=== PATIENT | female | born 1990 | race Caucasian/White ===

== ENCOUNTER 2019-02-22 13:08 | Emergency (ER) | payer SELFPAY ==
[2019-02-22 14:09] LABS: ABS Lymphocytes 1.3 10^3/ul (1.0-4.8); ABS Monocytes 0.7 10^3/ul (0-0.8); ABS Neutrophils 5.6 10^3/ul (1.5-7.7); Eosinophil % 0.2 %; Hematocrit 39 % (35-47); Hemoglobin 13.6 g/dL (12.0-16.0); Lymphocyte % 17.5 %; Mean Corpuscular HGB Conc 35 g/dL (31-36); Mean Corpuscular Hemoglobin 32 pg (27-31); Mean Corpuscular Volume 92 fL (80-97); Mean Platelet Volume 9.6 fL (7.4-10.4); Platelet Count 300 10^3/uL (150-450); Red Blood Count 4.22 10^6 /uL (3.70-4.87); Red Cell Distribution Width 12 % (10-15); White Blood Count 7.7 10^3/uL (3.5-10.8)
[2019-02-22 14:29] LABS: Albumin 5.1 g/dL (3.2-5.2); Albumin/Globulin Ratio 1.9 (1-3); Calcium 9.8 mg/dL (8.6-10.3); EGFR African American 132.3 (>60); EGFR Non-African American 109.3 (>60); Globulin 2.7 g/dL (2-4); Total Bilirubin 0.5 mg/dL (0.2-1.0); Total Protein 7.8 g/dL (6.4-8.9)
[2019-02-22 14:40] LABS: Potassium 2.7 mmol/L (3.5-5.0)
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
[2019-02-22 15:17] LABS: Magnesium 1.4 mg/dL (1.9-2.7)
[2019-02-22] MEDS ORDERED: Potassium Chlor TAB* 20 MEQ TAB.ER PO ONE (15:29)
[2019-02-22] MEDS ORDERED: Magnesium Oxide TAB* 400 MG PO ONE (15:29)
[2019-02-22] MEDS ORDERED: Iohexol 350* (CONTRAST) 500 ML MDV IV ONE (15:50)
[2019-02-22] MEDS ORDERED: Magnesium Sulfate 2 GM IV* 2 GM/50 ML BAG IVPB ONE (18:04)
[2019-02-22] MEDS: KCL 20 MEQ/100 ML IVPREMIX* 20 MEQ/100 ML BAG IV SCH ×2 (18:31→18:56)
--- NOTE | 2019-02-22 19:52 | ED ---
Progress - Progress Note Progress Note: This pt is a sign out to Dr. Thompson from Dr. Paul at shift change 02/22/191899 pending a US and disposition. - Results/Orders Results/Orders: Her Venous Doppler study found no evidence for a DVT. ED physician has reviewed this report. Re-Evaluation - Re-Evaluation First Eval Re-Evaluation Time: 20:41 Change: Improved Comment: Pt is agreeable to the discharge plan and will be discharged home. Second Eval Re-Evaluation Time: 18:18 Comment: Patient reports that she has been having calf pain at this time. She believes that Sx could be related to the amount of hiking she recently did. Patient addtionally notes that she believes that Sx could have been due to a panic attack. She also states that she has been intermittently compliant with her medications. Course/Dx - Course Course Of Treatment: This pt is a sign out to Dr. Thompson from Dr. Paul at shift change 02/22/191899 pending a US and disposition. Her Venous Doppler Study found no evidence for a DVT. She will be discharged with the Dxs that were given to her by Dr. Paul which are as follows: hypokalemia, hypomagnesemia, medical non-compliance, and hyperventilation syndrome. I have discussed results with the patient and her symptoms are resolved. Discussed symptoms that warrant immediate return to ED. - Diagnoses Provider Diagnoses: Hyperventilation syndrome, Medical non-compliance, Hypomagnesemia, Hypokalemia , Stress Discharge ED - Sign-Out/Discharge Documenting (check all that apply): Patient Departure - discharge Patient Received Moderate/Deep Sedation with Procedure: No - Discharge Plan Condition: Stable Disposition: HOME Prescriptions: hydrOXYzine pamoate [Vistaril] 50 mg PO Q6HR PRN #30 capsule PRN Reason: Anxiety Patient Education Materials: Hyperventilation (ED), Hypokalemia (ED), Hypomagnesemia (ED) Referrals: [facility] [Outside] - 2 Days Additional Instructions: PLEASE FOLLOW UP WITH YOUR PRIMARY CARE PROVIDER IN 2-3 DAYS AND RETURN TO THE EMERGENCY DEPARTMENT FOR ANY NEW OR WORSENING SYMPTOMS. Please take the prescribed medications as directed. - Billing Disposition and Condition Condition: STABLE Disposition: Home - Attestation Statements Document Initiated by Scribe: Yes Documenting Scribe: Saravanan Lucas Provider For Whom Scribe is Documenting (Include Credential): Lisa Thompson MD Scribe Attestation: I, Saravanan Lucas, scribed for Lisa Thompson MD on 02/22/19 at 2212. Scribe Documentation Reviewed: Yes Provider Attestation: The documentation as recorded by the [email or web address] accurately reflects the service I personally performed and the decisions made by me, Lisa Thompson MD Status of Scribe Document: Viewed
[2019-02-22 20:52] VITALS: BP 120/70
[2019-02-22 22:49] LABS: TSH (Thyroid Stimulating Horm) 1.99 mcIU/mL (0.34-5.60)
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
== END 2019-02-22 20:51 | disposition home or self-care (01) ==
LOC: ED 13:08
DX: F45.8 Other somatoform disorders (principal); Z91.19 Patient's noncompliance with other medical treatment and regimen; E83.42 Hypomagnesemia; E87.6 Hypokalemia; F43.9 Reaction to severe stress, unspecified; R06.02 Shortness of breath; R53.83 Other fatigue; N15.8 Other specified renal tubulo-interstitial diseases; Z88.1 Allergy status to other antibiotic agents; Z88.0 Allergy status to penicillin; Z87.891 Personal history of nicotine dependence
CPT/HCPCS: 36415; 70496; 70498; 80053; 82607; 83605; 83735; 84443; 84484; 85025; 85379; 93005; 93970; 96365; 96366; 99282; A9270-GY; J3475; J3480; Q9967

== ENCOUNTER 2019-07-15 10:26 | Emergency (ER) | payer SELFPAY ==
--- NOTE | 2019-07-15 11:20 | ED ---
Throat Pain/Nasal Congestion - HPI Summary HPI Summary: Patient is a 29 y/o F presenting to the ED for a chief complaint of sore throat for the last 2 weeks. Previously, patient was seen at [facility], told she had a fever, and given Tylenol, steroids, and antibiotics with relief of her sore throat. Two days after completing the antibiotic, her sore throat returned. Patient was prescribed a second course of antibiotics, for which she is on day 2 or 3. She also notes a cough, ear ache, and decreased oral intake. PMHx is significant for Gitelman syndrome and recurrent tonsillitis in childhood. Allergies to penicillin and Augmentin noted. - History of Current Complaint Chief Complaint: EDThroatPain Time Seen by Provider: 07/15/19 11:17 Hx Obtained From: Patient Onset/Duration: Sudden Onset, Lasting Weeks - 2 weeks, Still Present Severity: Moderate Cough: Other: - Cough - Allergies/Home Medications Allergies/Adverse Reactions: Allergies Allergy/AdvReac Type Severity Reaction Status Date / Time amoxicillin [From Augmentin] Allergy Hives Verified 07/15/19 10:30 clavulanic acid Allergy Hives Verified 07/15/19 10:30 [From Augmentin] Penicillins Allergy Hives Verified 07/15/19 10:30 PMH/Surg Hx/FS Hx/Imm Hx Previously Healthy: Yes Endocrine/Hematology History: Denies: Hx Diabetes Cardiovascular History: Denies: Hx Hypertension History: Reports: Other Problems/Disorders - gitelman syndrome Denies: Hx Renal Disease Sensory History: Denies: Hx Legally Blind, Hx Deafness Opthamlomology History: Denies: Hx Legally Blind EENT History: Denies: Hx Deafness Psychiatric History: Reports: Hx Anxiety Denies: Hx Panic Disorder - Surgical History Surgical History: None Surgery Procedure, Year, and Place: none Infectious Disease History: No Infectious Disease History: Denies: Traveled Outside the [place] in Last 30 Days - Family History Known Family History: Positive: Other - no FMHx of stroke Negative: Blood Disorder - Social History Occupation: Employed Full-time Alcohol Use: Rare Hx Substance Use: Yes Substance Use Type: Reports: Marijuana Hx Tobacco Use: Yes Smoking Status (MU): Former Smoker Review of Systems Positive: Fever - In vitals, 98.1 F, Other - Positive decreased oral intake Positive: Sore Throat, Ear Ache Positive: Cough All Other Systems Reviewed And Are Negative: Yes Physical Exam - Summary Physical Exam Summary: Constitutional: Well-developed, Well-nourished, Alert. (-) Distressed Skin: Warm, Dry HENT: Normocephalic; Atraumatic. Swelling in the region of the right posterior oropharynx consistent with peritonsillar abscess, bilateral exudates. Eyes: Conjunctiva normal Neck: Musculoskeletal ROM normal neck. (-) JVD, (-) Stridor, (-) Tracheal deviation Cardio: Rhythm regular, rate normal, Heart sounds normal; Intact distal pulses; The pedal pulses are 2+ and symmetric. Radial pulses are 2+ and symmetric. (-) Murmur Pulmonary/Chest wall: Effort normal. (-) Respiratory distress, (-) Wheezes, (-) Rales Abd: Soft, (-) tenderness, (-) Distension, (-) Guarding, (-) Rebound Musculoskeletal: (-) Edema Lymph: (-) Cervical adenopathy Neuro: Alert, Oriented x3 Psych: Mood and affect Normal Triage Information Reviewed: Yes Vital Signs On Initial Exam: Initial Vitals Temp Pulse Resp BP Pulse Ox 98.1 F 88 20 123/70 98 07/15/19 10:28 07/15/19 10:28 07/15/19 10:28 07/15/19 10:28 07/15/19 10:28 Vital Signs Reviewed: Yes ENT: Positive: Uvula midline, Other - Significantly enlarged right tonsil with bilateral exudates. Uvula midline. Peritonsillar fossa appears normal, no fullness/swelling. Procedures - Sedation Patient Received Moderate/Deep Sedation with Procedure: No Diagnostics - Vital Signs Vital Signs Temp Pulse Resp BP Pulse Ox 07/15/19 10:28 98.1 F 88 20 123/70 98 - Laboratory Lab Statement: Any lab studies that have been ordered have been reviewed, and results considered in the medical decision making process. EENT Course/Dx - Course Course Of Treatment: Patient is a 29 y/o F presenting to the ED for a chief complaint of sore throat for the last 2 weeks. Previously, patient was seen at [facility], told she had a fever, and given Tylenol, steroids, and antibiotics with relief of her sore throat. Two days after completing the antibiotic, her sore throat returned. Patient was prescribed a second course of antibiotics, for which she is on day 2 or 3. She also notes a cough, ear ache, and decreased oral intake. PMHx is significant for Gitelman syndrome and recurrent tonsillitis in childhood. Allergies to penicillin and Augmentin noted. In the ED course, patient was given Clindamycin 600 mg PO, Cetacaine spray 1 spray TOPICAL. Bedside ultrasound performed with intracavitary probe, no peritonsillar abscess cavity appreciated. Patient will be discharged with a diagnosis of tonsillitis and prescription for clindamycin and prednisone. Follow up with ENT. - Diagnoses Provider Diagnoses: Tonsillitis Discharge ED - Sign-Out/Discharge Documenting (check all that apply): Patient Departure - Discharge - Discharge Plan Condition: Stable Disposition: HOME Prescriptions: Clindamycin Cap(NF) [Clindamycin Cap 300 mg Cap(NF)] 300 mg PO TID 7 Days #21 cap predniSONE [Prednisone 20 MG TAB] 40 mg PO DAILY 4 Days #8 tablet Patient Education Materials: Tonsillitis (ED) Referrals: [facility] [Outside] Edgar Mcmahan MD [Medical Doctor] - Additional Instructions: RETURN TO THE EMERGENCY DEPARTMENT FOR CHANGING OR WORSENING SYMPTOMS. Follow up with ENT and your primary care physician in 1-3 days. - Billing Disposition and Condition Condition: STABLE Disposition: Home - Attestation Statements Document Initiated by Noam: Yes Documenting Scribe: Agustina Woodard Provider For Whom Noam is Documenting (Include Credential): Clark Rhodes DO Scribe Attestation: Agustina Carr scribed for Clark Rhodes DO on 07/15/19 at 1501. Scribe Documentation Reviewed: Yes Provider Attestation: The documentation as recorded by the Agustina galvez accurately reflects the service I personally performed and the decisions made by , Clark Rhodes DO Status of Scrmarisela Document: Viewed
[2019-07-15] MEDS ORDERED: Benzocaine/Butamben/Tetracain (CETACAINE - SINGLE USE) 5 gm TOPICAL ONE (11:43)
[2019-07-15] MEDS ORDERED: Lidocaine 1% MPF ** 5 ML VIAL INJ ONE (11:43)
[2019-07-15] MEDS ORDERED: Clindamycin CAP* 150 MG PO ONE (12:25)
[2019-07-15 12:43] VITALS: BP 105/72
== END 2019-07-15 12:42 | disposition home or self-care (01) ==
LOC: ED 10:26
DX: J03.90 Acute tonsillitis, unspecified (principal); N15.8 Other specified renal tubulo-interstitial diseases; Z87.891 Personal history of nicotine dependence; Z88.0 Allergy status to penicillin; Z88.1 Allergy status to other antibiotic agents
CPT/HCPCS: 99282; A9270-GY

== ENCOUNTER 2019-07-18 11:00 | Inpatient (IN) | payer SELFPAY ==
[2019-07-18] MEDS ORDERED: Benzocaine/Butamben/Tetracain (CETACAINE - SINGLE USE) 5 gm TOPICAL ONE (11:13)
[2019-07-18] MEDS ORDERED: Ketorolac INJ* 30 MG/ML 1 ML VIAL IV ONE (11:14)
--- NOTE | 2019-07-18 11:20 | ED ---
Throat Pain/Nasal Congestion - HPI Summary HPI Summary: The patient is a 29 y/o female presenting to [facility] accompanied by mother with a chief complaint of severe throat pain initially onset three weeks ago with worsening since. She reports that she began to experience a sore throat a few weeks ago that was worse on the right. She was diagnosed with strep throat. Since then, she has had three courses of antibiotics and two steroids without relief of the swelling. She notes that there hasnt been any pus or abscess in the throat. She went to ENT today, where she saw Dr. Mcmahan who advised her to come to the ED for possible admission. She endorses decreased oral intake secondary to pain and dysphagia. She notes a history of tonsillitis when she was younger which was supposed to require a tonsillectomy but did not have the procedure done. She has had tonsillar issues since then but not to this degree. She is unsure if she had mono before, but she was not tested recently. Symptoms are currently rated 10/10 in severity. She has also been taking Naproxen and Hydrocodone to no relief of the pain. PMHx: Gitelman syndrome. Former smoker, rare EtOH, marijuana use. Medications reviewed. Allergies noted. - History of Current Complaint Chief Complaint: EDThroatPain Time Seen by Provider: 07/18/19 11:07 Hx Obtained From: Patient Onset/Duration: Lasting Weeks, Still Present Severity: Severe Associated Signs And Symptoms: Positive: Dysphagia Cough: None Related History: Other (Noted In Comments) - tonsil problems in past, no tonsillectomy although was supposed to have it - Allergies/Home Medications Allergies/Adverse Reactions: Allergies Allergy/AdvReac Type Severity Reaction Status Date / Time amoxicillin [From Augmentin] Allergy Hives Verified 07/18/19 11:06 clavulanic acid Allergy Hives Verified 07/18/19 11:06 [From Augmentin] Penicillins Allergy Hives Verified 07/18/19 11:06 PMH/Surg Hx/FS Hx/Imm Hx Endocrine/Hematology History: Denies: Hx Diabetes Cardiovascular History: Denies: Hx Hypertension GI History: Reports: Other GI Disorders - tonsillar issues History: Reports: Other Problems/Disorders - gitelman syndrome Denies: Hx Renal Disease Sensory History: Denies: Hx Legally Blind, Hx Deafness Opthamlomology History: Denies: Hx Legally Blind Psychiatric History: Reports: Hx Anxiety Denies: Hx Panic Disorder - Surgical History Surgical History: None Surgery Procedure, Year, and Place: none Infectious Disease History: No Infectious Disease History: Denies: Traveled Outside the [place] in Last 30 Days - Family History Known Family History: Positive: Other - no FMHx of stroke Negative: Blood Disorder - Social History Alcohol Use: Rare Hx Substance Use: Yes Substance Use Type: Reports: Marijuana Hx Tobacco Use: Yes Smoking Status (MU): Former Smoker Review of Systems Positive: Sore Throat, Other - dysphagia Positive: Other - decreased oral intake secondary to throat pain All Other Systems Reviewed And Are Negative: Yes Physical Exam - Summary Physical Exam Summary: Constitutional: Well-developed, Well-nourished, Alert. (-) Distressed Skin: Warm, Dry HENT: Bilateral tonsillar erythema +swelling with exudates; Normocephalic; Atraumatic Eyes: Conjunctiva normal Neck: Musculoskeletal ROM normal neck. (-) JVD, (-) Stridor, (-) Nuchal rigidity Cardio: Rhythm regular, rate tachycardic, Heart sounds normal; Intact distal pulses; Radial pulses are 2+ and symmetric. (-) Murmur Pulmonary/Chest wall: Effort normal. (-) Respiratory distress, (-) Wheezes, (-) Rales Abd: Soft, (-) tenderness, (-) Distension, (-) Guarding, (-) Rebound Musculoskeletal: (-) Edema Lymph: (+) Cervical adenopathy Neuro: Alert, Oriented x3 Psych: Mood and affect Normal Triage Information Reviewed: Yes Vital Signs On Initial Exam: Initial Vitals Temp Pulse Resp BP Pulse Ox 98.5 F 112 18 141/100 98 07/18/19 11:03 07/18/19 11:03 07/18/19 11:03 07/18/19 11:03 07/18/19 11:03 Vital Signs Reviewed: Yes Procedures - Sedation Patient Received Moderate/Deep Sedation with Procedure: No Diagnostics - Vital Signs Vital Signs Temp Pulse Resp BP Pulse Ox 07/18/19 11:03 98.5 F 112 18 141/100 98 - Laboratory Result Diagrams: 07/18/19 11:15 07/18/19 11:15 Lab Statement: Any lab studies that have been ordered have been reviewed, and results considered in the medical decision making process. Re-Evaluation - Re-Evaluation First Eval Re-Evaluation Time: 12:49 Comment: Discussed plan for admission, patient and mother agreeable. EENT Course/Dx - Course Course Of Treatment: 29 y/o F w recurrent strep throat p/w tonsillar swelling and inability to tolerate PO. - VS tachy, exam w recurrent tonsillar erythema, swelling and exudates. Sent for culture, test for mono, check CBC and CMP given history of hypokalemia. Labs w potassium 2.5, given 40 IV. Plan for IV hydration, admit to the hospitalist. They can discuss with ENT regarding further course of antibiotics versus surgical txt. - Diagnoses Provider Diagnoses: Tonsillitis, Hypokalemia - Provider Notifications Discussed Care Of Patient With: Serge Bah - hospitalist Time Discussed With Above Provider: 12:45 Instructed by Provider To: Other - Dr. Bah accepts the patient for admission. Discharge ED - Sign-Out/Discharge Documenting (check all that apply): Patient Departure - Patient accepted for admission by Dr. Bah. - Discharge Plan Condition: Stable Disposition: ADMITTED TO [facility] Referrals: [facility] [Outside] - Billing Disposition and Condition Condition: STABLE Disposition: Admitted to [facility] - Attestation Statements Document Initiated by Noam: Yes Documenting Scribe: Debbie Kovacs Provider For Whom Noam is Documenting (Include Credential): Dr. Rico Yarbrough MD Scribe Attestation: Debbie Carr scribed for Dr. Rico Yarbrough MD on 07/18/19 at 1258. Scribe Documentation Reviewed: Yes Provider Attestation: The documentation as recorded by the Debbie galvez accurately reflects the service I personally performed and the decisions made by me, Dr. Rico Yarbrough MD Status of Scribe Document: Viewed
[2019-07-18 11:29] LABS: ABS Lymphocytes 0.6 10^3/ul (1.0-4.8); ABS Neutrophils 9.5 10^3/ul (1.5-7.7); Eosinophil % 0.1 %; Hematocrit 39 % (35-47); Hemoglobin 14.1 g/dL (12.0-16.0); Lymphocyte % 5.1 %; Mean Corpuscular HGB Conc 37 g/dL (31-36); Mean Corpuscular Hemoglobin 33 pg (27-31); Mean Corpuscular Volume 90 fL (80-97); Mean Platelet Volume 8.9 fL (7.4-10.4); Platelet Count 264 10^3/uL (150-450); Red Blood Count 4.26 10^6 /uL (3.70-4.87); Red Cell Distribution Width 12 % (10-15); White Blood Count 11.1 10^3/uL (3.5-10.8)
[2019-07-18 11:54] LABS: Albumin 4.4 g/dL (3.2-5.2); Albumin/Globulin Ratio 1.2 (1-3); BUN/Creatinine Ratio 14.3 (8-20); Calcium 9.6 mg/dL (8.6-10.3); EGFR Non-African American 128.9 (>60); Globulin 3.8 g/dL (2-4); Total Bilirubin 0.5 mg/dL (0.2-1.0); Total Protein 8.2 g/dL (6.4-8.9)
[2019-07-18 11:57] LABS: Potassium 2.5 mmol/L (3.5-5.0)
[2019-07-18] MEDS: KCL 20 MEQ/100 ML IVPREMIX* 20 MEQ/100 ML BAG IV SCH ×2 (12:59→15:58)
[2019-07-18] MEDS ORDERED: Acetaminophen TAB* 325 MG PO PRN (13:35)
[2019-07-18] MEDS ORDERED: Ketorolac INJ* 15 MG/ML 1 ML VIAL IV PUSH PRN (13:39)
[2019-07-18 13:52] LABS: Magnesium 1.6 mg/dL (1.9-2.7)
[2019-07-18] MEDS ORDERED: Magnesium Sulfate 2 GM IV* 2 GM/50 ML BAG IVPB ONE (14:17)
[2019-07-18] MEDS ORDERED: Potassium Chlor TAB* 10 MEQ TAB.ER PO ONE (14:39)
--- NOTE | 2019-07-18 15:51 | HP ---
HISTORY AND PHYSICAL: DATE OF ADMISSION: 07/18/19 PROVIDER: Dahiana Wilkes NP PRIMARY CARE PROVIDER: None. ATTENDING PHYSICIAN WHILE IN THE HOSPITAL: Dr. Serge Bah * (dictated by Dahiana Wilkes NP). CHIEF COMPLAINT: Sore throat. HISTORY OF PRESENT ILLNESS: Ms. Prado is a 29-year-old female with a history of Gitelman syndrome, who presented to the emergency room with the complaints of worsening sore throat. The patient reports that on 06/29/19, she was experiencing sore throat. She had a culture done that was positive for strep. At that time, she was started on what she believes is cefdinir, for which she finished a 7-day course. The patient reports that approximately 24 to 48 hours after completing her first round of antibiotics, she again developed a sore throat, which has become progressively worse since. The patient reports that she was seen again and started on azithromycin on 07/10/19, but has had no improvement with the antibiotics and is only becoming worse to the point she is unable to swallow due to significant amount of pain. The patient reports that she was again seen on Tuesday, at that time her antibiotic was changed from azithromycin to clindamycin and the patient has been on clindamycin. She followed up with ENT today, who sent her to the emergency room for admission. The patient also reports that she has been steroids for 2 weeks with no relief. At this point, the patient reports she is unable to tolerate food or fluids and reports that she has been having fevers and chills on and off since . She does report occasional cough. She denies any chest pain, hemoptysis, shortness of breath. No nausea, vomiting, diarrhea or abdominal pain. Denies any gross hematuria or dysuria. Denies any focal weakness or sensory loss. Denies any visual complaints, dysphagia, arthralgias, myalgias, rashes, lesions , open sores, psychosis or anxiety. While in the emergency room, the patient had routine lab work drawn. She was found to have a mildly elevated white count of 11.1, a potassium of 2.5, and magnesium of 1.6. Due to the findings of worsening tonsillitis and hypokalemia , Hospital Medicine was asked to see and evaluate her for admission. PAST MEDICAL HISTORY: Significant for Gitelman syndrome. PAST SURGICAL HISTORY: None. MEDICATIONS: Home medications include: 1. Potassium chloride 40 mEq t.i.d. 2. Magnesium 2 tablets daily. 3. Naproxen as needed. ALLERGIES: Allergy to PENICILLIN and AUGMENTIN. FAMILY HISTORY: Mother with hypertension. Grandparents with stroke and [place]. No reported history of diabetes. Mother with cervical and thyroid cancer. SOCIAL HISTORY: Denies any tobacco, alcohol or illicit drug use. Surrogate decision maker in the event she is unable to make her own decisions is her mother. She is a full code. REVIEW OF SYSTEMS: A 14-point review of systems was completed. All pertinent positives are mentioned in the HPI. PHYSICAL EXAMINATION GENERAL: At this time, Ms. Prado is alert and oriented, resting on the stretcher in the emergency room. She is in no apparent respiratory distress at this time. VITAL SIGNS: Blood pressure 136/90, heart rate of 100, respirations 16, O2 saturation 99%, temperature was 98.5. HEENT: Head is atraumatic, normocephalic. Eyes: EOMs are intact. Sclerae anicteric and not pale. Oral mucosa is moist. She does have tonsillar swelling with white exudate and erythema. NECK: She does have tonsillar lymphadenopathy,which is very tender to the touch. No mandibular or cervical chain lymphadenopathy was noted. LUNGS: Clear to auscultation bilaterally. No wheezes, rales, or rhonchi. CARDIAC: S1, S2. Regular rate and rhythm. No murmurs, rubs or gallops. ABDOMEN: Soft and nontender. Bowel sounds are present x4. EXTREMITIES: She is able to to move all 4 extremities. There is no clubbing or cyanosis. NEUROLOGIC: She is awake, alert and oriented x3. Speech is clear. Thought process is intact. SKIN: Intact. DIAGNOSTIC STUDIES/LAB DATA: WBCs are 11.1, RBCs 4.26, hemoglobin 14.1, hematocrit 39, platelet count 264. Sodium 135, potassium 2.5, chloride 91, carbon dioxide 33, anion gap is 11, BUN 8, creatinine 0.56, magnesium 1.6. [place] was negative. ASSESSMENT AND PLAN: Ms. Prado is a 29-year-old female with a past medical history significant for Gitelman syndrome, who presented to the emergency room with progressively worsening tonsillitis. She will be admitted under observation for: 1. Sore throat. I suspect her sore throat is related to tonsillitis. The patient did have a recent positive strep, for which was then treated cefdinir x7 days and then azithromycin and was recently switched to clindamycin. She was also seen by Dr. Mcmahan in the office today and was sent to the emergency room for IV antibiotics and admission. I did speak to Dr. Mcmahan on the phone and he recommended consultation to ID for antibiotic choice for her tonsillitis. I did speak to ID, who recommended ceftriaxone. The patient will be placed on ceftriaxone 1 g q.24 hours and she can have Toradol 15 mg every 6 hours as needed for mild pain max 20 doses. I will add Percocet and consider morphine as needed for severe pain. At this point, the patient is able to tolerate secretions and she has had 2 weeks of prednisone, with no improvement. At this time, I will hold off on giving her Decadron, Should the swelling become or she is unable to tolerate her secretions I would recommend a trail of corticosteroids. I will get herpes , GC throat culture as well. 2. Gitelman syndrome. From the syndrome, the patient does experience chronic hypokalemia and hypomagnesia. I will replete her potassium and magnesium and repeat a BMP and mag in the a.m. 3. FEN. She can have a regular diet. 4. Code status. She is a full code. 5. DVT prophylaxis. Encourage ambulation. TIME SPENT: Time spent on this admission was 60 minutes. Greater than half that time was spent at the bedside reviewing events leading thus far to her hospitalization, performing physical exam and reviewing my plan of care. I have discussed with my attending. Dr. Serge Bah, he is in agreement with my plan. DAHIANA WILKES, MEDICATION SPECIALIST [id number]/[facility] #: [id number] [place]
[2019-07-18] MEDS: oxyCODONE/Acetamin 5/325 MG* TAB PO PRN ×2 (16:02→21:54)
[2019-07-18] MEDS: cefTRIAXone(*) 1 GM in NS 0.9% 50 ML* 50 ML IVPB SCH (17:35)
[2019-07-18] MEDS ORDERED: Potassium Chlor TAB* 20 MEQ TAB.ER PO ONE (18:30)
[2019-07-18] MEDS: Ketorolac INJ* 15 MG/ML 1 ML VIAL IV PUSH PRN (18:36)
[2019-07-18] MEDS: D5W 1/2 NS 40 Meq KCL 1000 ML* 1,000 ML IV SCH (18:40)
[2019-07-18] MEDS: Phenol 1.4% Spray* 177 ML BTL MT PRN (21:31)
[2019-07-19] MEDS: Ketorolac INJ* 15 MG/ML 1 ML VIAL IV PUSH PRN ×4 (00:18→20:40)
[2019-07-19] MEDS: D5W 1/2 NS 40 Meq KCL 1000 ML* 1,000 ML IV SCH (04:55)
[2019-07-19] MEDS: Morphine INJ* 2 MG/ML 1 ML SYRINGE (TWO MG - NEW SYRINGE VERSION) IV PRN ×5 (05:12→23:46)
[2019-07-19] MEDS ORDERED: D5LR 1000 ML BAG* 1,000 ML IV SCH (10:00)
--- NOTE | 2019-07-19 12:50 | PN ---
Subjective Date of Service: 07/19/19 Interval History: Ms. Prado continues to have sore throat, subjective fever, chills/sweats. She states that she has decreased PO intake due to throat pain and has no relief with hot or cold liquids. She states that it feels as if she is swallowing glass or throat is on fire with swallowing. She has had a nonproductive cough for "a couple of days" without dyspnea or wheeze. She has had difficulty with sleeping and nausea. She c/o constipation. No other complaints today. Objective Active Medications: Acetaminophen (Tylenol Tab*) 650 mg PO Q4H PRN PRN Reason: MILD PAIN or TEMP > 100.4 Ceftriaxone Sodium 1 gm/ (Sodium Chloride) 50 mls @ 100 mls/hr IVPB Q24H [facility] Last Admin: 07/18/19 17:35 Dose: 100 mls/hr Dextrose/Lactated Ringer's (D5lr 1000 Ml Bag*) 1,000 mls @ 100 mls/hr IV PER RATE [facility] Stop: 07/19/19 19:59 Last Admin: 07/19/19 11:03 Dose: 100 mls/hr Ketorolac Tromethamine (Toradol Inj*) 15 mg IV PUSH Q6H PRN PRN Reason: PAIN - MILD Stop: 07/23/19 13:38 Last Admin: 07/19/19 07:59 Dose: 15 mg Morphine Sulfate (Morphine Inj (Syringe))*) 2 mg IV Q4H PRN PRN Reason: PAIN - MODERATE Last Admin: 07/19/19 10:57 Dose: 2 mg Oxycodone/Acetaminophen (Percocet 5/325 Tab*) 1 tab PO Q6H PRN PRN Reason: PAIN - MODERATE Last Admin: 07/18/19 21:54 Dose: 1 tab Phenol/Menthol (Chloroseptic Throat [place]*) 1 spray MT TID PRN PRN Reason: SORE THROAT Last Admin: 07/18/19 21:31 Dose: 1 spray Vital Signs: Temp Pulse Resp BP Pulse Ox 97.4 F 83 17 112/78 100 07/19/19 02:40 07/19/19 02:40 07/19/19 10:57 07/19/19 02:40 07/19/19 02:40 Oxygen Devices in Use Now: None Appearance: Ms. Prado is a middle-age white female who is sitting up in bed. She appears mildly uncomfortable, without respiratory distress. Eyes: No Scleral Icterus, PERRLA Ears/Nose/Mouth/Throat: NL Teeth, Lips, Gums, Mucous Membranes Moist, - - b/l tonsils with erythema, extensive white exudate, and edema, R>L; voice appears normal Neck: NL Appearance and Movements; NL JVP, Trachea Midline, - - no apparent cervical LAD Respiratory: Symmetrical Chest Expansion and Respiratory Effort, Clear to Auscultation Cardiovascular: NL Sounds; No Murmurs; No JVD, RRR, No Edema Abdominal: NL Sounds; No Tenderness; No Distention, No Hepatosplenomegaly Extremities: No Edema, No Clubbing, Cyanosis Neurological: Alert and Oriented x 3 Result Diagrams: 07/19/19 13:25 07/19/19 13:25 Assess/Plan/Problems-Billing Assessment: 29yof PMHx Gitelman's syndrome presents with throat pain and tonsilitis x20 days that has been resistant to treatment with cefdinir. - Patient Problems (1) Acute bacterial tonsillitis Comment: -patient with sore throat since 06/29; failed 7 d cefdinir; also on 3d azithro, 4d clinda -now with exudative sore throat with associated erethema, edema -mono negative; did have positive strep test in outpatient setting -pending EBV, HSV, gonnorrhea, throat cultures -Dr. Mcmahan recommended admission, ID consultation -ID consulted; recommends ceftriaxone and will see patient (2) Gitelman syndrome Comment: -K, Mg repleted yesterday -patient is difficult stick; awaiting labs for today to determine need for further electrolyte repletion -placed on PO K 120 mEq daily, as at home; offered liquid, and patient prefers tablets -continue to monitor lytes daily (3) DVT prophylaxis Comment: -encourage ambulation (4) Full code status Status and Disposition: Observation. Discharge when stable.
[2019-07-19 13:37] LABS: ABS Lymphocytes 1.9 10^3/ul (1.0-4.8); ABS Monocytes 0.9 10^3/ul (0-0.8); ABS Neutrophils 6.7 10^3/ul (1.5-7.7); Eosinophil % 0.1 %; Hematocrit 37 % (35-47); Hemoglobin 13.3 g/dL (12.0-16.0); Mean Corpuscular HGB Conc 36 g/dL (31-36); Mean Corpuscular Hemoglobin 33 pg (27-31); Mean Corpuscular Volume 91 fL (80-97); Mean Platelet Volume 8.4 fL (7.4-10.4); Platelet Count 276 10^3/uL (150-450); Red Cell Distribution Width 12 % (10-15); White Blood Count 9.6 10^3/uL (3.5-10.8)
[2019-07-19 13:59] LABS: BUN/Creatinine Ratio 8.2 (8-20); C Reactive Protein 81.65 mg/L (<8.01); EGFR African American 141.3 (>60); EGFR Non-African American 116.8 (>60); Magnesium 2.1 mg/dL (1.9-2.7)
[2019-07-19 14:22] LABS: Potassium 2.5 mmol/L (3.5-5.0)
[2019-07-19] MEDS ORDERED: Potassium Chloride* LIQUID 20 MEQ/15 ML UDC PO SCH (14:35)
[2019-07-19] MEDS ORDERED: KCL 20 MEQ/100 ML IVPREMIX* 20 MEQ/100 ML BAG IV SCH (15:00)
[2019-07-19] MEDS: POTASSIUM CHLOR 20 MEQ PO SCH ×2 (15:33→19:25)
[2019-07-19] MEDS: cefTRIAXone(*) 1 GM in NS 0.9% 50 ML* 50 ML IVPB SCH (17:31)
[2019-07-20] MEDS: Ketorolac INJ* 15 MG/ML 1 ML VIAL IV PUSH PRN ×2 (02:52→09:31)
[2019-07-20] MEDS: Morphine INJ* 2 MG/ML 1 ML SYRINGE (TWO MG - NEW SYRINGE VERSION) IV PRN ×5 (03:23→21:41)
[2019-07-20 06:29] LABS: ABS Basophils 0.1 10^3/ul (0-0.2); ABS Lymphocytes 2.1 10^3/ul (1.0-4.8); ABS Neutrophils 6.5 10^3/ul (1.5-7.7); Eosinophil % 0.4 %; Hematocrit 38 % (35-47); Hemoglobin 13.2 g/dL (12.0-16.0); Lymphocyte % 21.3 %; Mean Corpuscular HGB Conc 35 g/dL (31-36); Mean Corpuscular Hemoglobin 32 pg (27-31); Mean Corpuscular Volume 90 fL (80-97); Mean Platelet Volume 8.3 fL (7.4-10.4); Platelet Count 265 10^3/uL (150-450); Red Blood Count 4.16 10^6 /uL (3.70-4.87); Red Cell Distribution Width 12 % (10-15); White Blood Count 9.6 10^3/uL (3.5-10.8)
[2019-07-20 06:48] LABS: Calcium 8.9 mg/dL (8.6-10.3); Potassium 2.9 mmol/L (3.5-5.0)
[2019-07-20 06:53] LABS: BUN/Creatinine Ratio 17.5 (8-20); EGFR African American 152.8 (>60); EGFR Non-African American 126.3 (>60)
[2019-07-20] MEDS: POTASSIUM CHLOR 20 MEQ PO SCH ×3 (07:38→21:53)
[2019-07-20] MEDS ORDERED: NS 0.9% 1000 ML** 1,000 ML IV SCH ×2 (08:30→09:15)
[2019-07-20] MEDS ORDERED: NS 0.9% w/ 40 Meq KCL 1000 ML* 1,000 ML IV SCH (09:00)
[2019-07-20] MEDS ORDERED: KCL 20 MEQ/100 ML IVPREMIX* 20 MEQ/100 ML BAG IV SCH (09:00)
--- NOTE | 2019-07-20 10:53 | PN ---
Subjective Date of Service: 07/20/19 Interval History: Ms. Prado is not feeling any better today. Throat pain is still severe. She has been able to eat a few bites of food, but only after receiving morphine. She does think the swelling is improved. Denies CP, SOB, N/V. Nursing reported that patient was requesting IVF this morning, but then complained that she felt "funny" while receiving fluids. Patient is refusing IV KCl. Family History: Unchanged from Admission Social History: Unchanged from Admission Past Medical History: Unchanged from Admission Objective Active Medications: Acetaminophen (Tylenol Tab*) 650 mg PO Q4H PRN MILD PAIN or TEMP > 100.4 Ceftriaxone Sodium 1 gm/ (Sodium Chloride) 50 mls @ 100 mls/hr IVPB Q24H [facility] Ketorolac Tromethamine (Toradol Inj*) 15 mg IV PUSH Q6H PRN PAIN - MILD Morphine Sulfate (Morphine Inj (Syringe))*) 2 mg IV Q4H PRN PAIN - MODERATE Ondansetron HCl (Zofran Inj*) 4 mg IV Q6H PRN [facility] Oxycodone/Acetaminophen (Percocet 5/325 Tab*) 1 tab PO Q6H PRN PAIN - MODERATE Phenol/Menthol (Chloroseptic Throat [place]*) 1 spray MT TID PRN SORE THROAT Potassium Chloride (Klor Con Er Tab*) 40 meq PO TID [facility] Vital Signs - 8 hr 07/20/19 07/20/19 07/20/19 03:23 03:30 04:20 Temperature 98.6 F Pulse Rate 93 Respiratory 20 16 16 Rate Blood Pressure 110/57 (mmHg) O2 Sat by Pulse 98 Oximetry Oxygen Devices in Use Now: None Appearance: Middle-aged female lying in bed in NAD Ears/Nose/Mouth/Throat: Mucous Membranes Moist Respiratory: Symmetrical Chest Expansion and Respiratory Effort, Clear to Auscultation Cardiovascular: NL Sounds; No Murmurs; No JVD, RRR Abdominal: NL Sounds; No Tenderness; No Distention Neurological: Alert and Oriented x 3 Lines/Tubes/Other Access: Clean, Dry and Intact Peripheral IV Nutrition: Taking PO's Result Diagrams: 07/20/19 06:19 07/20/19 06:19 Assess/Plan/Problems-Billing Assessment: Ms. Prado is a 29 yo F with PMH of Gitelman's syndrome; who presented with throat pain and tonsilitis x20 days that has been resistant to treatment with cefdinir, azithromycin, clinda. - Patient Problems (1) Acute tonsillitis Code(s): J03.90 - ACUTE TONSILLITIS, UNSPECIFIED Comment: - Sore throat since 06/29; failed 7d cefdinir; also took 3d azithro, 4d clinda - Now with exudative sore throat with associated erethema, edema; Dr. Mcmahan recommended admission - [place] negative; did have positive strep test in outpatient setting - Pending EBV, HSV, gonnorrhea/chlamydia - Throat culture growing normal judy - Appreciate ID consult - Continue ceftriaxone (2) Gitelman syndrome Code(s): E83.42 - HYPOMAGNESEMIA; E87.6 - HYPOKALEMIA Comment: - Repleting potassium again today; patient refusing IV potassium - Monitor lytes daily (3) DVT prophylaxis Code(s): Z29.9 - ENCOUNTER FOR PROPHYLACTIC MEASURES, UNSPECIFIED Comment: - Ambulation (4) Full code status Code(s): Z78.9 - OTHER SPECIFIED HEALTH STATUS Comment: Status and Disposition: Inpatient. Anticipate d/c home when medically stable. Attending: Duyen Jordan
--- NOTE | 2019-07-20 11:00 | CONS ---
CONSULTATION REPORT: DATE OF CONSULT: 07/20/19 REQUESTING PROVIDER: Kate Cloud NP CONSULTING SERVICE: Infectious Disease. REASON FOR CONSULTATION: Severe pharyngitis. IMPRESSION: 1. Pharyngitis and tonsillitis with associated lymphadenopathy. She does have pain with swallowing, but is able to swallow. No wheeze. No induration under the mandible or neck, could be polymicrobial bacterial process. Other considerations include acute herpes simplex virus infection or gonorrhea or chlamydial pharyngitis, acute human immunodeficiency virus is on the differential, but she does not have an associated flu like illness or rash on the face or chest that seems less likely. 2. History of Gitelman syndrome. 3. PENICILLIN allergy, which was hives as a child. RECOMMENDATIONS: The throat cultures reported as normal judy. I asked microbiology to speciate what they are seeing. They are going to continue that process. She has had a swab for RNA for gonorrhea and chlamydia and PCR for HSV DNA. We will continue her broad spectrum antibiotics and corticosteroids as well as IV hydration and pain control. HISTORY OF PRESENT ILLNESS: This is a 29-year-old woman who has had about 2-1/ 2 weeks of severe sore throat with some fevers and pain with swallowing, but has been able to swallow though, has not been eating or drinking much because of the severe pain. She had a course of an oral cephalosporin followed by clindamycin and azithromycin as well as outpatient corticosteroids. She came to the hospital on 07/18/19 after being directed here by the ENT office. Her white count on admission was 11,000, CRP 80. A monospot was negative. She has had no fevers here except for low-grade temperature yesterday afternoon. She has been on ceftriaxone and initially some corticosteroids. She has had cultures and swabs sent. Her pain is a little bit better in her throat. She is taking sips of fluids, is able to swallow and breathe fine. No wheezing. She has not had infection like this in the past. No new partners for the last couple of months. PAST MEDICAL HISTORY: Gitelman syndrome. MEDICATIONS: 1. Tylenol. 2. Ketorolac. 3. Morphine as needed. 4. Oxycodone as needed. 5. Phenol spray. 6. Potassium by mouth. 7. Ceftriaxone 1 g a day. ALLERGIES: PENICILLIN, which caused hives as a child. FAMILY HISTORY: Mother has hypertension. Grandparents had stroke and [place]. SOCIAL HISTORY: She lives in [place]. 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 She has one partner, which was care home. Does not have contact with young kids. No travel. REVIEW OF SYSTEMS: A 12-point review is all negative except as noted above in the history of present illness. PHYSICAL EXAM: Vital Signs: Temperature 37, heart rate 90, respiratory rate 16 , blood pressure 110/57, oxygen saturation 98% on room air. In general, she is awake, not in distress. Neurologic: She is oriented x3. Follows all commands. HEENT: Her voice is normal. She has no thrush. She has some difficulty extending her tongue fully. On the distal soft palate, there is erythema with scant amount of purulent material with bilateral enlarged tonsils with erythema and some exudate. There is no other mass. Neck: Supple without mass. There is no tenderness to palpation or scattered anterior cervical nodes. Heart: Regular rate and rhythm without murmurs, rubs, or gallops. Lungs: Clear to auscultation bilaterally. Abdomen: Soft, nontender, nondistended. There are bowel sounds present. Skin: There is no rash or splinter hemorrhage. Musculoskeletal: There is no spine tenderness to palpation or joint synovitis. DIAGNOSTIC STUDIES/LAB DATA: White blood cell count 9, hemoglobin 13, platelets 265. Creatinine 0.5. CRP 81. Please see impressions and recommendations outlined above that I discussed with Kate Cloud NP. Thank you for asking me to see Ms. Prado in consultation. [id number]/[facility] #: [id number] [facility]PITALKiran
[2019-07-20 12:32] LABS: EBV Capsid Ag IgG Ab Positive (Negative); EBV Capsid Ag IgM Ab Negative (Negative); Epstein-Barr Nuclear Antigen Positive (Negative)
[2019-07-20] MEDS: Ondansetron INJ* 2 MG/ML VIAL IV PRN (13:59)
[2019-07-20] MEDS: Phenol 1.4% Spray* 177 ML BTL MT PRN (14:16)
[2019-07-20] MEDS ORDERED: Senna TAB 8.6 mg* TAB PO PRN (15:41)
[2019-07-20] MEDS: cefTRIAXone(*) 1 GM in NS 0.9% 50 ML* 50 ML IVPB SCH (17:34)
[2019-07-20] MEDS: Docusate CAP* 100 MG PO SCH (21:47)
[2019-07-21] MEDS: Morphine INJ* 2 MG/ML 1 ML SYRINGE (TWO MG - NEW SYRINGE VERSION) IV PRN ×2 (01:35→05:30)
[2019-07-21 07:29] VITALS: BP 104/60
[2019-07-21] MEDS: Ketorolac INJ* 15 MG/ML 1 ML VIAL IV PUSH PRN (07:30)
[2019-07-21] MEDS: Docusate CAP* 100 MG PO SCH (07:36)
[2019-07-21] MEDS: POTASSIUM CHLOR 20 MEQ PO SCH (07:38)
[2019-07-21] MEDS: Ondansetron INJ* 2 MG/ML VIAL IV PRN (08:38)
[2019-07-21] MEDS ORDERED: Magnesium Hydroxide LIQ* 30 ML UDC PO ONE (09:20)
[2019-07-21] MEDS ORDERED: ValACYclovir (*) 1 GM TAB PO SCH (10:00)
[2019-07-21 15:54] LABS: C trachomatis Source ORAL / THROAT; N. gonorrhoeae Source THROAT
--- NOTE | 2019-07-21 19:56 | DS ---
CC: Dr. Fam Phan and Olga Lidia Cunningham NP * DISCHARGE SUMMARY: DATE OF ADMISSION: 07/18/19 DATE OF DISCHARGE: 07/21/19 PRIMARY CARE PROVIDER: None. ATTENDING PHYSICIAN: Dr. Sulema Angulo.* (DICTATED BY GEOVANI SANZ NP) PRIMARY DIAGNOSIS: Acute pharyngotonsillitis, herpes simplex virus-2 positive. SECONDARY DIAGNOSIS: Gitelman syndrome. STUDIES WHILE IN THE HOSPITAL: None. HISTORY OF PRESENT ILLNESS AND HOSPITAL COURSE: Ms. Prado is a 29-year-old female with past medical history of Gitelman syndrome, who presented to the emergency room on 07/18/19 with complaints of sore throat. Please see the history and physical by Soraya Wilkes NP for complete summary of the events leading up to this hospitalization. In short, the patient began having symptoms on 06/29/19. She described fevers, chills and sore throat. On that day, she did have a culture, which was positive for strep. She took a 7-day course of cefdinir, but his symptoms did not improve and then ultimately took 3 days of azithromycin and 4 days of clindamycin. Ultimately, she saw Dr. Mcmahan on 07/18/19 and he recommended that she come to the emergency room. In the emergency room, the patient was noted to have normal vitals and labs except for hypokalemia and hypomagnesemia consistent with her previous diagnosis of Gitelman syndrome. Because of her persistent tonsillitis, she was admitted by the hospitalist service. Infectious Disease was consulted and the patient was seen by Dr. Phan on . At that point, he recommended awaiting throat cultures and PCRs. The patient was kept on ceftriaxone during this time. Ultimately the throat culture grew only normal judy and was negative for gonorrhea, chlamydia and HSV1, though was positive for HSV2 as of this morning. I did speak with Dr. Phan again this morning, who advised placing the patient on Valtrex for a total of 2 weeks and outpatient followup with him, though he advised that the patient was stable for discharge from his perspective. I did have a long conversation with the patient about this diagnosis, treatment and prognosis. She is understandably upset about the diagnosis, though is understanding and would like to go home today. She is able to to swallow pills and eat and drink at this time, though is still having moderate throat pain. She is alert and oriented x4 with no focal neurological deficits. Heart is regular rate and rhythm without murmurs, rubs or gallops. Lungs are clear to auscultation without rhonchi, wheezes or rubs. On the soft palate, there was noted to be erythema with bilateral enlarged tonsils. Ms. Prado is stable for discharge. Most recent vital signs are as follows; temp 98.2, heart rate 94, respiratory rate 20, oxygen saturation 98% on room air , blood pressure 104/60. DISCHARGE MEDICATIONS: New: 1. Valacyclovir 1 g p.o. b.i.d. x2 weeks. 2. Ondansetron 4 mg p.o. q.6 hours p.r.n. nausea. 3. Tramadol 50 mg p.o. q.6 hours p.r.n. pain. Continued: 1. Magnesium oxide 400 mg p.o. daily. 2. Naproxen 500 mg p.o. q.8 hours p.r.n. pain. 3. Potassium chloride 20 mEq p.o. t.i.d.. Discontinued: 1. Azithromycin. 2. Clindamycin. DISCHARGE PLAN: Ms. Prado will be discharged home. Activity will be as tolerated. Diet will be regular as tolerated. Medications are noted above. The patient will need to complete 2 weeks of valacyclovir per recommendations from Infectious Disease. I have also prescribed her a 5-day supply of tramadol for pain and a small amount of Zofran for any nausea. She can continue her other usual medications as noted above. She does not have a PCP and she has been referred to [facility], though I have also advised her that she will need to follow up with Dr. Phan next week and I have provided her with his office phone number. She should return to the emergency room or nearest hospital for any worsening of symptoms, shortness of breath, lightheadedness, dizziness, chest discomfort, high fever, chills, night sweats, loss of consciousness or any other worrisome signs or symptoms. DISCHARGE CONDITION: Stable. DISCHARGE DISPOSITION: Home. This is a summarized report of complex medical history and hospital stay. For further details, please see entire medical record. TIME SPENT: Approximately 50 minutes was spent on this discharge. GEOVANI SANZ, FASHION ILLUSTRATOR [id number]/[facility] #: [id number] [facility] DIVISIONKiran
== END 2019-07-21 12:00 | disposition home or self-care (01) | DRG 159 ==
LOC: ED 11:00 → MED 13:35 → OBSVTOIN 07-20 09:03
PROVIDERS: ADMIT Internal Medicine; ATTEND Internal Medicine
DX: B00.2 Herpesviral gingivostomatitis and pharyngotonsillitis (principal); N25.9 Disorder resulting from impaired renal tubular function, unspecified; Z87.891 Personal history of nicotine dependence; Z88.0 Allergy status to penicillin; Z79.899 Other long term (current) drug therapy
CPT/HCPCS: 36415; 80048; 80053; 83735; 85025; 86140; 86308; 86664; 86665; 87040; 87070; 87205; 87491; 87529; 87591; 96365; 96375; 99284; A9270-GY; G0378; J0696; J1885; J2270; J2405; J3475; J3480